=== PATIENT | male | born 1965 | race African-American/Black ===

== ENCOUNTER 2017-06-21 11:09 | Inpatient (IN) | payer OTHER, MEDICAID ==
[2017-06-21] VITALS (27 sets, daily range): BP systolic 144–196; BP diastolic 88–130
[~2017-06-21] VITALS: Ht 180.3 cm; Wt 89.8 kg
[~2017-06-21 11:09] MED LIST: ETOMIDATE 2MG/ML 10ML VIAL IV ONE; LIDOCAINE HCL 1% 20ML VIAL (Pyxis) INJ ONE; SODIUM BICARBONATE 4.2% 5 MEQ/10 ML DISP.SYRIN IV ONE; SUCCINYLCHOLINE CHLORIDE 200MG/10ML VIAL IV ONE
[2017-06-21] MEDS ORDERED: ASPIRIN 81MG TABLET PO STA (11:27)
[2017-06-21] MEDS ORDERED: LORAZEPAM 2MG/ML CPJ IV ONE ×2 (11:30→12:45)
[2017-06-21] MEDS ORDERED: ONDANSETRON HCL 4MG/2ML VIAL IV ONE (11:30)
[2017-06-21] MEDS ORDERED: HYDRALAZINE 20MG/ML VIAL IV ONE (11:30)
[2017-06-21] MEDS ORDERED: FUROSEMIDE 40MG/4ML VIAL IVP ONE (11:45)
[2017-06-21] MEDS ORDERED: ETOMIDATE 2MG/ML 10ML VIAL IV ONE (12:00)
[2017-06-21] MEDS ORDERED: PROPOFOL 10MG/ML 100ML 100 ML IV ONE (12:00)
[2017-06-21] MEDS ORDERED: SUCCINYLCHOLINE CHLORIDE 200MG/10ML VIAL IV ONE (12:00)
[2017-06-21 12:17] LABS: EOSINOPHILS % 0.1 % (0.0-5.0); MEAN CORPUSCULAR HEMOGLOBIN 28.9 pg (28.0-32.0); MEAN CORPUSCULAR VOLUME 83.7 fL (80.0-94.0); MEAN PLATELET VOLUME 7.5 fl (7.4-10.4); MONOCYTES % 11.1 % (2.0-8.0); NEUTROPHILS % 79.8 % (40.0-76.0); PLATELET 87 x1000/uL (130-400); RED CELL DISTRIBUTION WIDTH 15.4 % (11.6-14.6)
[2017-06-21 12:22] LABS: HEMATOCRIT. 19.3 % (42.0-52.0); HEMOGLOBIN. 6.6 g/dL (14.0-18.0)
[2017-06-21 12:27] LABS: CHLORIDE 104 mEq/L (98-107); PARTIAL THROMBOPLASTIN TIME 34.3 sec (23.4-31.0); PROTHROMBIN TIME 10.9 sec (9.4-11.6)
[2017-06-21 12:36] LABS: CARBON DIOXIDE 12 mEq/L (21-32); ETHANOL BLOOD < 10 mg/dL; TROPONIN I 0.12 ng/mL (0.00-0.04)
[2017-06-21 12:49] LABS: TOTAL IRON BINDING CAPACITY 168 ug/dL (250-450)
[2017-06-21] MEDS ORDERED: LORAZEPAM 2MG/ML CPJ ONE (12:50)
[2017-06-21 13:00] LABS: BG BASE EXCESS -16.6 mmol/L (-2.0-2.0); BG CARBOXYHEMOGLOBIN 1.2 % (0.5-1.5); BG DEOXYHEMOGLOBIN 5.5 % (0.0-5.0); BG HCO3 ACT 11.6 mmol/L (22.0-26.0); BG METHEMOGLOBIN 0.3 % (0.0-1.5); BG OXYGEN SATURATION 94.4 % (92.0-98.5); BG PH 7.114 (7.350-7.450); BG PO2 96.3 mmHg (75.0-100.0); BG SAMPLE SITE RIGHT RADIAL; BG TIDAL VOLUME(mL) 550 mL; BG TOTAL HEMOGLOBIN 8.1 g/dL (12.0-18.0); BG VENT MODE VENT - A/C; BG VENT RATE 14 set
[2017-06-21] MEDS ORDERED: SODIUM BICARBONATE 8.4% 1 MEQ/ML 50ML SYR IV ONE (13:00)
[2017-06-21 13:07] LABS: *AMPHETAMINES SCREEN URINE NEGATIVE (NEGATIVE); *BARBITURATES SCREEN URINE NEGATIVE (NEGATIVE); *BENZODIAZEPINES SCREEN URINE NEGATIVE (NEGATIVE); *COCAINE SCREEN URINE PRESUMTIVE POSITIVE (NEGATIVE); CANNABINOID URINE SCREEN NEGATIVE (NEGATIVE); METHADONE URINE SCREEN NEGATIVE (NEGATIVE); OPIATES URINE SCREEN NEGATIVE (NEGATIVE); PHENCYCLIDINE URINE SCREEN NEGATIVE (NEGATIVE)
[2017-06-21] MEDS ORDERED: IPRATROPIUM/ALBUTEROL 0.5-3(2.5)MG/3ML NEB HHN PRN (13:30)
[2017-06-21 14:02] LABS: CLARITY URINE CLOUDY (CLEAR); COLOR URINE YELLOW (YELLOW); GLUCOSE URINE 1+ (NEGATIVE); KETONES URINE NEGATIVE (NEGATIVE); LEUKOCYTE ESTERASE URINE NEGATIVE (NEGATIVE); NITRITE URINE NEGATIVE (NEGATIVE); OCCULT BLOOD URINE 2+ (NEGATIVE); PROTEIN URINE 4+ (NEGATIVE); SPECIFIC GRAVITY URINE 1.019 (1.005-1.030); UROBILINOGEN URINE 0.2 E.U./dL (0.2-1.0)
[2017-06-21] MEDS ORDERED: LEVOFLOXACIN 500MG PREMIX 100 ML IV SCH ×2 (14:15→17:00)
[2017-06-21] MEDS ORDERED: ACETAMINOPHEN 650MG SUPP PR PRN (14:15)
[2017-06-21] MEDS ORDERED: PIPERACILLIN/TAZ 3.375G PREMIX 50 ML IV SCH (14:15)
[2017-06-21] MEDS ORDERED: ONDANSETRON HCL 4MG/2ML VIAL IV PRN (14:15)
[2017-06-21] MEDS: PROPOFOL 10MG/ML 100ML 100 ML IV PRN ×3 (14:55→22:40)
[2017-06-21] MEDS ORDERED: SODIUM POLYSTYRENE SULFONATE 15 G/60 ML BOT PO NR (15:30)
[2017-06-21] MEDS ORDERED: VANCOMYCIN 1500MG in DEXTROSE 5% WATER 250ML IV SCH (16:00)
[2017-06-21] MEDS: HYDRALAZINE 20MG/ML VIAL IV PRN (18:41)
[2017-06-21] MEDS: IPRATROPIUM/ALBUTEROL 0.5-3(2.5)MG/3ML NEB HHN SCH (19:45)
[2017-06-21] MEDS ORDERED: SODIUM BICARBONATE 100 MEQ in DEXTROSE 5% WATER 1,000 ML IV SCH (20:00)
[2017-06-21] MEDS: NITROGLYCERIN OINT 1GM/INCH UDPKT TD SCH (22:00)
[2017-06-21 23:36] LABS: TROPONIN I 0.21 ng/mL (0.00-0.04)
[2017-06-21] MEDS: AMLODIPINE 5MG TABLET PO SCH (23:44)
[2017-06-21] MEDS: CLONIDINE 0.1MG TABLET PO PRN (23:44)
[2017-06-22] VITALS (49 sets, daily range): BP systolic 122–191; BP diastolic 66–114
[2017-06-22] MEDS: HYDRALAZINE 20MG/ML VIAL IV PRN ×2 (00:29→05:45)
[2017-06-22] MEDS: IPRATROPIUM/ALBUTEROL 0.5-3(2.5)MG/3ML NEB HHN SCH ×3 (01:52→20:06)
[2017-06-22] MEDS: PROPOFOL 10MG/ML 100ML 100 ML IV PRN ×7 (02:30→23:05)
[2017-06-22] MEDS: CLONIDINE 0.1MG TABLET PO PRN (05:44)
[2017-06-22 05:50] LABS: HEMOGLOBIN. 7.2 g/dL (14.0-18.0); MEAN CORPUSCULAR HEMOGLOBIN 28.7 pg (28.0-32.0); PLATELET 81 x1000/uL (130-400); RED BLOOD CELL COUNT 2.51 mill/uL (4.7-6.1); RED CELL DISTRIBUTION WIDTH 15.4 % (11.6-14.6)
[2017-06-22] MEDS: NITROGLYCERIN OINT 1GM/INCH UDPKT TD SCH ×3 (05:55→22:39)
[2017-06-22 06:07] LABS: HEMATOCRIT. 20.8 % (42.0-52.0)
[2017-06-22 06:46] LABS: CARBON DIOXIDE 27 mEq/L (21-32); CHLORIDE 100 mEq/L (98-107); LDL CHOLESTEROL 102 mg/dL (5-100); T4 FREE 0.89 ng/dL (0.76-1.46); TROPONIN I 0.22 ng/mL (0.00-0.04)
[2017-06-22 07:01] LABS: CREATINE KINASE 1958 IU/L (39-308); HDL CHOLESTEROL 25 mg/dL (40-59)
[2017-06-22] MEDS ORDERED: ENALAPRIL 1.25MG/ML VIAL 1ML IV PRN (09:30)
[2017-06-22] MEDS: AMLODIPINE 5MG TABLET PO SCH ×2 (09:44→21:02)
[2017-06-22 09:45] LABS: BG BASE EXCESS 1.8 mmol/L (-2.0-2.0); BG CARBOXYHEMOGLOBIN 0.1 % (0.5-1.5); BG DEOXYHEMOGLOBIN 1.1 % (0.0-5.0); BG FRACTION INSPIRED OXYGEN 100; BG HCO3 ACT 25.7 mmol/L (22.0-26.0); BG METHEMOGLOBIN 0.9 % (0.0-1.5); BG OXYGEN SATURATION 98.9 % (92.0-98.5); BG OXYHEMOGLOBIN 97.9 % (94.0-97.0); BG PCO2 36.7 mmHg (35.0-45.0); BG PH 7.463 (7.350-7.450); BG PO2 308.6 mmHg (75.0-100.0); BG SAMPLE SITE LEFT RADIAL; BG TIDAL VOLUME(mL) 500 mL; BG TOTAL HEMOGLOBIN 7.2 g/dL (12.0-18.0); BG VENT MODE VENT - A/C; BG VENT RATE 16 set
[2017-06-22 11:41] LABS: PLATELET ESTIMATE DECREASED
[2017-06-22] MEDS: DEXT 5%/0.9% NACL 1,000 ML IV SCH (11:41)
[2017-06-22] MEDS: HYDRALAZINE HCL 50MG TABLET PO SCH ×2 (13:57→22:38)
[2017-06-22] MEDS: CLONIDINE 0.1MG TABLET PO SCH ×2 (13:58→22:38)
[2017-06-22] MEDS ORDERED: NITROGLYCERIN OINT 1GM/INCH UDPKT TD NR (15:30)
[2017-06-22] MEDS ORDERED: FUROSEMIDE 20MG/2ML VIAL IVP NR (15:45)
[2017-06-23] VITALS (53 sets, daily range): BP systolic 105–175; BP diastolic 57–124
[2017-06-23] MEDS: IPRATROPIUM/ALBUTEROL 0.5-3(2.5)MG/3ML NEB HHN SCH ×4 (00:08→20:01)
[2017-06-23] MEDS: PROPOFOL 10MG/ML 100ML 100 ML IV PRN ×6 (03:19→23:19)
[2017-06-23] MEDS: NITROGLYCERIN OINT 1GM/INCH UDPKT TD SCH ×3 (05:38→22:58)
[2017-06-23] MEDS: HYDRALAZINE HCL 50MG TABLET PO SCH ×3 (05:38→21:27)
[2017-06-23] MEDS: CLONIDINE 0.1MG TABLET PO SCH ×3 (05:38→22:57)
[2017-06-23 05:43] LABS: MEAN CORPUSCULAR HEMOGLOBIN 28.8 pg (28.0-32.0); MEAN PLATELET VOLUME 9.1 fl (7.4-10.4); PLATELET 94 x1000/uL (130-400); RED CELL DISTRIBUTION WIDTH 16.3 % (11.6-14.6)
[2017-06-23 05:52] LABS: HEMATOCRIT. 19.9 % (42.0-52.0); HEMOGLOBIN. 6.9 g/dL (14.0-18.0)
[2017-06-23 06:52] LABS: HEPATITIS B SURFACE ANTIGEN NEGATIVE
[2017-06-23 07:35] LABS: BG BASE EXCESS -1.9 mmol/L (-2.0-2.0); BG FRACTION INSPIRED OXYGEN 60; BG HCO3 ACT 22.9 mmol/L (22.0-26.0); BG METHEMOGLOBIN 0.8 % (0.0-1.5); BG OXYHEMOGLOBIN 98.2 % (94.0-97.0); BG PCO2 38.9 mmHg (35.0-45.0); BG PH 7.388 (7.350-7.450); BG PO2 221.3 mmHg (75.0-100.0); BG SAMPLE SITE RIGHT RADIAL; BG TIDAL VOLUME(mL) 500 mL; BG TOTAL HEMOGLOBIN 6.9 g/dL (12.0-18.0); BG VENT MODE VENT - A/C; BG VENT RATE 16 set
[2017-06-23 08:05] LABS: PLATELET ESTIMATE DECREASED
[2017-06-23] MEDS: AMLODIPINE 5MG TABLET PO SCH ×3 (09:00→21:27)
[2017-06-23 09:26] LABS: PHOSPHORUS 10.4 mg/dL (2.5-4.9)
[2017-06-23] MEDS ORDERED: LEVOFLOXACIN 250MG PREMIX 50 ML IV SCH (11:00)
[2017-06-23] MEDS: LANTHANUM CARBONATE 500MG CHEW TABLET NG SCH ×2 (11:24→18:06)
[2017-06-23] MEDS: DEXT 5%/0.9% NACL 1,000 ML IV SCH (11:24)
[2017-06-23] MEDS: SILDENAFIL CITRATE 20MG TABLET PO SCH ×2 (14:08→22:57)
[2017-06-23] MEDS ORDERED: VANCOMYCIN 1 G PREMIX 200 ML IV NR (21:00)
[2017-06-24] VITALS (48 sets, daily range): BP systolic 97–152; BP diastolic 55–89
[2017-06-24] MEDS: IPRATROPIUM/ALBUTEROL 0.5-3(2.5)MG/3ML NEB HHN SCH ×4 (01:58→20:43)
[2017-06-24] MEDS: PROPOFOL 10MG/ML 100ML 100 ML IV PRN ×7 (02:00→22:44)
[2017-06-24] MEDS: DEXT 5%/0.9% NACL 1,000 ML IV SCH (02:02)
[2017-06-24] MEDS: CLONIDINE 0.1MG TABLET PO SCH ×3 (05:28→22:09)
[2017-06-24] MEDS: NITROGLYCERIN OINT 1GM/INCH UDPKT TD SCH ×3 (05:29→22:10)
[2017-06-24] MEDS: HYDRALAZINE HCL 50MG TABLET PO SCH ×3 (05:29→22:10)
[2017-06-24 05:38] LABS: HEMATOCRIT. 21.2 % (42.0-52.0); HEMOGLOBIN. 7.3 g/dL (14.0-18.0); MEAN CORPUSCULAR HEMOGLOBIN 28.6 pg (28.0-32.0); MEAN CORPUSCULAR VOLUME 83.4 fL (80.0-94.0); MEAN PLATELET VOLUME 9.3 fl (7.4-10.4); PLATELET 128 x1000/uL (130-400); RED BLOOD CELL COUNT 2.54 mill/uL (4.7-6.1); RED CELL DISTRIBUTION WIDTH 15.7 % (11.6-14.6)
[2017-06-24] MEDS: SILDENAFIL CITRATE 20MG TABLET PO SCH ×3 (06:00→22:10)
[2017-06-24] MEDS: LANTHANUM CARBONATE 500MG CHEW TABLET NG SCH ×3 (06:28→16:11)
[2017-06-24] MEDS: AMLODIPINE 5MG TABLET PO SCH ×2 (08:23→20:56)
[2017-06-24 11:39] LABS: PLATELET ESTIMATE NORMAL
[2017-06-24] MEDS ORDERED: PANTOPRAZOLE SODIUM 40 MG/VIAL IV SCH (11:45)
[2017-06-24 17:12] LABS: ANTI-NUCLEAR ANTIBODIES DIRECT Positive (Negative)
[2017-06-25 13:12] LABS: ANTI-MYELOPEROXIDASE AB < 9.0 U/mL (0.0-9.0); ANTI-PROTEINASE 3 ABS < 3.5 U/mL (0.0-3.5)
[2017-06-28 15:07] LABS: ATYPICAL P-ANCA <1:20 titer (Neg:<1:20); CYTOPLASMIC C-ANCA <1:20 titer (Neg:<1:20); PERINUCLEAR P-ANCA <1:20 titer (Neg:<1:20)
== END 2017-06-24 23:15 | disposition short-term general hospital (02) | DRG 208 ==
LOC: ER 12:22 → MICUSO 12:23 → ENRESERV 12:23 → EDBEDREQSVC 12:23 → EDBEDREQ 12:23 → EDBEDREQTM 12:23
PROVIDERS: ADMIT Hospitalist; ATTEND Hospitalist
PROC: 5A1945Z Respiratory Ventilation, 24-96 Consecutive Hours (ICD-10-PCS; principal; 2017-06-21)
PROC: 0BH17EZ Insertion of Endotracheal Airway into Trachea, Via Natural or Artificial Opening (ICD-10-PCS; 2017-06-21)
PROC: 02HV33Z Insertion of Infusion Device into Superior Vena Cava, Percutaneous Approach (ICD-10-PCS; 2017-06-21)
PROC: B548ZZA Ultrasonography of Superior Vena Cava, Guidance (ICD-10-PCS; 2017-06-21)
PROC: 30233N1 Transfusion of Nonautologous Red Blood Cells into Peripheral Vein, Percutaneous Approach (ICD-10-PCS; 2017-06-21)
PROC: 5A1D60Z (ICD-10-PCS; 2017-06-23)
DX: J96.01 Acute respiratory failure with hypoxia (principal); I13.2 Hypertensive heart and chronic kidney disease with heart failure and with stage 5 chronic kidney disease, or end stage renal disease; J18.9 Pneumonia, unspecified organism; N17.9 Acute kidney failure, unspecified; N18.6 End stage renal disease; E87.2 Acidosis; I50.30 Unspecified diastolic (congestive) heart failure; M62.82 Rhabdomyolysis; I16.1 Hypertensive emergency; E46 Unspecified protein-calorie malnutrition; D64.9 Anemia, unspecified; D69.6 Thrombocytopenia, unspecified; E87.5 Hyperkalemia; F14.10 Cocaine abuse, uncomplicated; F17.210 Nicotine dependence, cigarettes, uncomplicated; Z68.27 Body mass index [BMI] 27.0-27.9, adult
CPT/HCPCS: 31500; 31525; 36415; 36430; 36556; 36600; 70450; 71010; 76770; 76937; 78580; 80048; 80053; 80061; 80202; 80305; 81001; 82375; 82550; 82805; 82962; 83520; 83540; 83550; 83605; 83690; 83735; 83880; 84100; 84439; 84443; 84478; 84481; 84484; 85025; 85044; 85610; 85730; 86038; 86256; 86803; 86850; 86900; 86920; 87040; 87070; 87086; 87340; 93005; 93306; 93970; 94003; 94640; 96374; 96375; 99291; A6261; C1752; C9113; G0482; J0330; J0360; J1642; J1940; J1956; J2060; J2405; J2704; J3370; J3490; J7030; J7042; J7050; J7060; J7070; J7620; P9016